=== PATIENT | female | born 1940 | race Caucasian/White ===

== ENCOUNTER → 2017-06-27 | Outpatient (CLI) | payer OTHER ==
[~2017-06-27] MED LIST: ANORO ELLIPTA1 EACH IH; VENTOLIN HFA 1818 GM INH
== END ==
LOC: RAD 08:21
DX: Z12.31 Encounter for screening mammogram for malignant neoplasm of breast (principal)

== ENCOUNTER → 2017-07-23 | Outpatient (CLI) | payer OTHER | LOC: RAD 12:30 | DX: J98.11 Atelectasis (principal); J98.4 Other disorders of lung ==

== ENCOUNTER 2017-08-27 11:22 | Emergency (ER) | payer OTHER ==
[~2017-08-27] VITALS: Ht 162.6 cm; Wt 77.1 kg
[2017-08-27] MEDS ORDERED: KEFLEX500 M1 PO (11:39)
[2017-08-27 12:30] VITALS: BP 154/72
== END 2017-08-27 12:57 | disposition home or self-care (01) ==
LOC: ER 11:22
DX: S61.012A Laceration without foreign body of left thumb without damage to nail, initial encounter (principal); G47.30 Sleep apnea, unspecified; J44.9 Chronic obstructive pulmonary disease, unspecified; Z96.652 Presence of left artificial knee joint; W26.0XXA Contact with knife, initial encounter; Y93.89 Activity, other specified; Y92.89 Other specified places as the place of occurrence of the external cause; Y99.8 Other external cause status

== ENCOUNTER → 2018-08-27 | Outpatient (CLI) | payer OTHER ==
[~2018-08-27] MED LIST changes: +KEFLEX500 M1 PO
== END ==
LOC: RAD 15:19
DX: J98.11 Atelectasis (principal)

== ENCOUNTER → 2018-12-23 | Outpatient (CLI) | payer OTHER | LOC: BC 09:51 → ULTRA 09:51 | DX: Z12.31 Encounter for screening mammogram for malignant neoplasm of breast (principal); I10 Essential (primary) hypertension; R55 Syncope and collapse; R42 Dizziness and giddiness ==

== ENCOUNTER → 2019-01-12 | Outpatient (CLI) | payer OTHER | LOC: ULTRA 01:33 | DX: N63.10 Unspecified lump in the right breast, unspecified quadrant (principal) ==

== ENCOUNTER → 2020-03-23 | Outpatient (CLI) | payer OTHER | LOC: RAD 11:33 | PROVIDERS: ATTEND Internal Medicine | DX: Z12.31 Encounter for screening mammogram for malignant neoplasm of breast (principal); R07.89 Other chest pain; I51.9 Heart disease, unspecified; M41.85 Other forms of scoliosis, thoracolumbar region ==

== ENCOUNTER → 2020-03-31 | Outpatient (CLI) | payer OTHER | LOC: CAT 09:28 | PROVIDERS: ATTEND Internal Medicine | DX: J44.9 Chronic obstructive pulmonary disease, unspecified (principal); I25.10 Atherosclerotic heart disease of native coronary artery without angina pectoris; J84.10 Pulmonary fibrosis, unspecified; J98.4 Other disorders of lung; M25.78 Osteophyte, vertebrae; R91.8 Other nonspecific abnormal finding of lung field ==

== ENCOUNTER 2020-07-30 08:34 | Emergency (ER) | payer OTHER ==
[~2020-07-30] VITALS: Ht 157.5 cm; Wt 102.1 kg
[2020-07-30] MEDS ORDERED: ADVIL200 M3 PO (08:51)
[2020-07-30] MEDS ORDERED: B-125000 MC1 SUBLING (08:51)
[2020-07-30] MEDS ORDERED: COZAAR 50 MG TA50 M1 PO (09:11)
[2020-07-30 09:21] LABS: BASOPHILS 0.8 % (0.0-2.0); EOSINOPHILS 1.9 % (0.0-3.0); HEMATOCRIT 40.4 % (37.0-47.0); HEMOGLOBIN 13.5 gm/dL (12.0-15.0); LYMPHOCYTES 16.8 % (24.0-44.0); MCH 31.1 pg (26.0-34.0); MCHC 33.5 g/dL (28.0-37.0); MCV 92.8 fL (80.0-100.0); MONOCYTES 9.1 % (1.0-8.0); PLATELET COUNT 196 thou/uL (150-400); POLYS 71.4 % (36.0-66.0); RBC 4.35 mil/uL (4.20-5.00); RDW 13.9 % (10.5-14.5)
[2020-07-30 09:25] LABS: CALCIUM 8.8 mg/dL (8.5-10.1); CREATININE 0.7 mg/dL (0.6-1.0); POTASSIUM 4.1 mmol/L (3.5-5.1)
[2020-07-30 09:30] LABS: APTT 24.2 Seconds (24.5-32.8); PROTIME 10.9 Seconds (10.5-12.1)
[2020-07-30 09:31] LABS: ALBUMIN 3.4 g/dL (3.4-5.0); DIRECT BILIRUBIN 0.2 mg/dL (<0.1-0.2); TOTAL BILIRUBIN 1.2 mg/dL (0.2-1.0); TOTAL PROTEIN 6.4 g/dL (6.4-8.2)
[2020-07-30 09:41] LABS: URINE BILIRUBIN NEGATIVE (Negative); URINE BLOOD 1+ (Negative); URINE CLARITY CLEAR; URINE COLOR YELLOW; URINE GLUCOSE-RANDOM* NEGATIVE (Negative); URINE KETONES NEGATIVE (Negative); URINE LEUKOCYTES-REFLEX TRACE (Negative); URINE NITRITE-REFLEX NEGATIVE (Negative); URINE PROTEIN (DIPSTICK) NEGATIVE (Negative); URINE UROBILINOGEN 0.2 E.U./dl (0.2-1.0)
[2020-07-30 09:51] LABS: CASTS None Seen /LPF (None Seen); SQUAMOUS 0-3 Few /LPF (0-3)
[2020-07-30 09:52] LABS: BACTERIA-REFLEX 1-9 Few /HPF (None Seen); CRYSTALS None Seen /LPF (None Seen); URINE RBC 1-2 Rare /HPF (NONE SEEN); URINE WBC-REFLEX 0-5 Rare /HPF (0-5)
[2020-07-30] MEDS ORDERED: FLAGYL500 M1 PO (11:46)
[2020-07-30] MEDS ORDERED: CIPROFLOXACIN500 M1 PO (11:46)
[2020-07-30 12:18] VITALS: BP 166/109
== END 2020-07-30 12:20 | disposition home or self-care (01) ==
LOC: ER 08:34
PROVIDERS: Emergency Medicine
DX: K52.9 Noninfective gastroenteritis and colitis, unspecified (principal); K92.2 Gastrointestinal hemorrhage, unspecified; J44.9 Chronic obstructive pulmonary disease, unspecified; Z96.652 Presence of left artificial knee joint; Z98.51 Tubal ligation status; Z98.890 Other specified postprocedural states; Z79.899 Other long term (current) drug therapy